=== PATIENT | male | born 1960 | race Caucasian/White ===

== ENCOUNTER 2025-10-29 09:08 | Outpatient (AMB) | payer OTHER, SELFPAY ==
--- OUTSIDE RECORDS SUMMARY | 2024-10-11 06:00 | XMS_ITS ---
Author Organization [facility] Address [address] [place] [address] Care Team Providers Care Bedspread Cutter Name Role Phone DR. JORDY SYED Primary Care Provider REASON FOR VISIT [facility], [facility] - not feeling well , droggy, tired Medications Medication SIG (Take, Route, Frequency, Duration) Notes Start Date End Date Status Metoprolol Succinate 50 MG Capsule ER 24 Hour Sprinkle 1 capsule Orally Once a day; Duration: 30 day(s) Active Metoprolol Succinate 100 MG Capsule ER 24 Hour Sprinkle 1 capsule Orally Once a day Active Doxycycline Monohydrate 100 MG Capsule 1 capsule Orally twice a day; Duration: 10 day(s) 07/03/2024 Active Social History Social History Additional Details Category Social Info Options Details General Occupation: [employer], [employer] (mobile xrays) asbestos exposure: no Past year's travels: [place] alcohol use: yes socially drug use: no Hobbies/Exercise habits: caliste nics daily for 15 min prior to going to work in this [place] Coffee/Tea/Soda: diet soda Occ Marital Status experience no Living with son age 39y in [facility] Pets none smokers in household yes son Drugs no Section Notes: never smoked Encounters Encounter Location Date Provider Diagnosis [facility] [address] [place] [id number] 10/11/2024 JORDY SYED Plan Of Treatment Next Appt Details Provider Name:JORDY RITCHIE, 02/05/2026 07:40:00 AM, [address] [place], [address], Progress Notes * TAY ROLLEOB:1960 (65 yo M)Acc No.[id number]:10/11/2024 Progress note Patient: SAMANTHA TAY Provider: Pam SYED MD :1960 A ge:64 Y S ex:Male Date:10/11/2024 Address:[address] [place], [place] [id number] Subjective: * Chief Complaints: * [facility] [place] - not feeling well , droggy, tired * Medical History: Coronary artery disease without angina pectoris- s/p Cath and stent placed in ? 1998, Dr Mack LBBB Essential hypertension Parkinson's, Dr Stuart Congenital hearing loss Colon10/28/16-Ext hemorrhoids-Rec [id number] BPH with urinary symptoms- PVU Medical History Verified * Surgical History: MIRZA to LAD, Dr Mack, [facility] 1998 knee replacement left 11/2022 Surgical History verified. * Hospitalization/Major Diagno stic Procedure: ED [facility] - dizziness 2010 [facility] Admit - acute UTI, sepsis, COVID-19, new onset A-fib with RVR. 09/30/24 Hospitalization Verified. * Family History: F ather: , family history unknown . M other: 57 yrs, alcoholism. C satinderen: alive, 1 son, 1 daughter, healthy . S iblings: 64 yrs, tripple bypass- bro,- smoker, drinker , lung cancer, diagnosed with Heart Disease, Cancer. S ibling # 1: alive 55 yrs, bro- healthy, healthy . S ibling # 2: alive 59 yrs, sister- healthy, healthy . 2 brother(s) , 1 sister(s) . 1 son(s) , 1 daughter(s) - healthy. . F amily History Verified.. 2 GC\\nno family history of colon cancer or polyps. * Social History: G eneral: D rugs: no. Alcohol Screen D id you have a drink containing alcohol in the past year?: Yes, How often did you have a drink containing alcohol in the past year?: Two to four times a month (2 points), How many drinks did you have on a tpical day when you were drinking in the past year?: 1 or 2 (0 points), How often did you have six or more drinks on one occassion in the past year?: Never (0 points), Points: 2, Interpretation: Negative. S mokers in household: yes, son. Alcohol use: yes, socially. Drug use: no. Coffee/Tea/Soda: diet soda Occ. Marital Status: . Living with: , son age 39y in [place]. 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 Asbestos exposure: no. experience: no. Past year's travels: [place]. Hobbies/Exercise habits: calistenics daily for 15 min prior to going to work in this [place]. Pets: none. Social History Verified. n ever smoked. * Medications: T akingMetoprolol Succinate 50 MG Capsule ER 24 Hour Sprinkle 1 capsule Orally Once a day Metoprolol Succinate 100 MG Capsule ER 24 Hour Sprinkle 1 capsule Orally Once a day Doxycycline Monohydrate 100 MG Capsule 1 capsule Orally twice a day Medication List reviewed and reconciled with the patientTaking Metoprolol Succinate 50 MG Capsule ER 24 Hour Sprinkle 1 capsule Orally Once a day Taking Metoprolol Succinate 100 MG Capsule ER 24 Hour Sprinkle 1 capsule Orally Once a day Taking Doxycycline Monohydrate 100 MG Capsule 1 capsule Orally twice a day Medication List reviewed and reconciled with the patient * Allergies: y esAllergies Verified. * Electronic signature of DR. JORDY SYED M.D. on 10/29/2025 at 09:12 AM EST Sign off status: Pending * Provider: Pam SYED MD Date: 12/12/2023 Generated for Mara titus/Luis Carlos/Lio on: 12/30/2024 09:12 AM EST
--- OUTSIDE RECORDS SUMMARY | 2025-10-29 09:13 | XMS_ITS | Patient Health Record ---
Author Organization [facility] Address [address] [place] [address] Care Team Providers Care Commercial Pilot Name Role Phone DR. JORDY SYED Primary Care Provider [place], NURSING Unavailable [phone] Allergies No Known Allergies Reason For Referral Reason (07/16/25 Wtg appt) a 65 yr old male with enlarging right inguinal hernia with discomfort despite supprt belt please see Referral Organization [facility] Referring Provider First Name JORDY Referring Provider Last Name KUNAL Referring Provider Speciality Internal M edicine Referred Provider SAMANTHA BOBBY Referred Provider Specialty Surgery General Notes Samantha Bobby MD, Surgeon in [place], [place], Address: [address] [place] [address] [address] [address], , fax at [phone], [phone] Clinical Notes Latrice DENNIS MA 0 07/16/2025 11:09:13 AM > Faxed referral and notes Referral Priority Urgent Medications Medication SIG (Take, Route, Frequency, Duration) Notes Start Date End Date Status Finasteride 5 MG Tablet 1 tablet Orally Once a day; Duration: 30 day(s) Active Apixaban 5 MG Tablet 1 tablet Orally twice a day Active Lisinopril 5 MG Tablet 2 tablets Orally Once a day; Duration: 30 day(s) Active Metoprolol Succinate 50 MG Capsule ER 24 Hour Sprinkle 1 capsule Orally Once a day; Duration: 30 day(s) Active Aspirin Adult Low Dose 81 MG Tablet Delayed Release 1 tablet Orally Once a day; Duration: 30 day(s) Active Docusate Sodium 100 MG Capsule 1 capsule as needed Orally Once a day; Duration: 30 day(s) Active Carbidopa-Levodopa 25-100 MG Tablet 2 tablets Orally 5 times a day Active Amitriptyline HCl 25 MG Tablet 1 tablet at bedtime Orally Once a day; Duration: 30 day(s) Active Tamsulosin HCl 0.4 MG Capsule 1 capsule Orally Once a day; Duration: 30 day(s) Active Selegiline HCl 5 MG Tablet 1 tablet with breakfast and lunch Orally Twice a day; Duration: 30 day(s) Active Dulcolax 5 MG Tablet Delayed Release 2 tabs Orally Once a day as needed for constipation [facility] prescribed 10/17/2024 Active Metoprolol Succinate 100 MG Capsule ER 24 Hour Sprinkle 1 capsule Orally Once a day Active Ezetimibe-Simvastatin 10-40 MG Tablet TAKE 1 TABLET BY MOUTH ONCE DAILY; Duration: 90 Active Immunizations Vaccine Route Administration Date Status Comme nts Influenza, Fluzone Quad IM Intramuscular 07/23/2021 Administered Influenza, Fluzone Quad IM Intramuscular 07/25/2022 Administered Influenza, Fluzone QUAD, 3+ yrs, IM Intramuscular 08/28/2017 Administered Influenza, Fluzone QUAD, 3+ yrs, IM Intramuscular 09/06/2018 Administered Influenza, Fluzone QUAD, 3+ yrs, Unknown 09/09/2019 Administered Influenza, Fluzone Quad.5 ml, IM Intramuscular 09/06/2016 Administered Pfizer COVID-19,mRNA, LNP-S, PF, 30mcg/0.3mL dose IM Intramuscular 12/14/2020 Administered 2nd shot Dec 14, [facility] Pneumococcal, PPV 23 IM Intramuscular 09/06/2016 Administered PPD, TB Intradermal Test IM Intramuscular 12/08/2020 Pending PPD, TB Intradermal Test ID Intradermal 01/13/2021 Administered PPD, TB Intradermal Test ID Intradermal 01/17/2022 Administered PPD, TB Intradermal Test TD Transdermal 01/27/2023 Administered PPD, TB Intradermal Test ID Intradermal 01/31/2024 Administered PPD, TB Intradermal Test ID Intradermal 02/04/2025 Administered Tdap (Adacel) IM Intramuscular 11/15/2017 Administered Social History Tobacco Use: Social History Observation Description Date Details (start date - stop date) Never Smoker NA - NA Social History Drug/Alcohol: Social Info Question Answer Notes Alcohol Screen Did you have a drink containing alcohol in the past year? Yes How often did you have a drink containing alcohol in the past year? Two to four times a month (2 points) How many drinks did you have on a tpical day when you were drinking in the past year? 3 or 4 (1 point) How often did you have six or more drinks on one occassion in the past year? 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 Coffee/Tea/Soda: yes diet soda Occ Marital Status experience no Living with son age 39y in [facility] Pet none smokers in household yes son Drugs no Section Notes: never smoked never smoked never smoked never smoked never smoked never smoked never smoked never smoked never smoked never smoked never smoked never smoked never smoked Problems Problem Type SNOMED Code ICD Code Onset Dates Problem Status W/U Status Risk Notes Problem Paroxysmal atrial fibrillation (242248850) Paroxysmal atrial fibrillation (I48.0) Active confirmed Problem Primary insomnia (3313319) Primary insomnia (F51.01) Active confirmed Problem Chronic pain (12146565) Other chronic pain (G89.29) Active confirmed Problem Erectile dysfunction (disorder) (133869747) Erectile dysfunction due to diseases classified elsewhere (N52.1) Active confirmed Problem Atherosclerotic hear t disease of [place] coronary artery without angina pectoris (591598845956078) Coronary artery disease involving [place] coronary artery of [place] heart without angina pectoris (I25.10) Active confirmed Problem Parkinson disease (06052538) Parkinson disease (G20) Active confirmed Problem Osteoarthritis of knee (775671026) Primary osteoarthritis of right knee (M17.11) Active confirmed Problem Constipation by delayed colonic transit (08569019) Constipation by delayed colonic transit (K59.01) Active confirmed Problem Atrial fibrillation (52101613) Atrial fibrillation with RVR (I48.91) Active confirmed Problem Pure hypercholesterolemia (840898312) Pure hypercholesterolemia (E78.00) Active confirmed Problem Osteoarthritis of knee (794974234) Other secondary osteoarthritis of both knees (M17.4) Active confirmed Problem Hearing loss (63891486) Bilateral hearing loss, unspecified hearing loss type (H91.93) Active confirmed Problem Dyslipidemia (065010876) Dyslipidemia (E78.5) Active confirmed Problem Arthritis of knee (180626630) Arthritis of knee (M17.10) Active confirmed Problem Sensorineural hearin g loss (87252725) Congenital hearing loss of both ears (H90.5) Active confirmed Problem Essential hypertension (85177304) Well-controlled hypertension (I10) Active confirmed Problem Benign prostatic hyperplasia (673839482) Prostate hypertrophy (N40.0) Active confirmed Problem Parkinson's disease (disorder) (40550639) Parkinson's disease, unspecified whether dyskinesia present, unspecified whether manifestations fluctuate (G20.A1) Active confirmed Vital Signs Blood pressure diastolic 82 mm Hg 02/04/2025 Height 72 in 02/04/2025 Blood pressure systolic 110 mm Hg 02/04/2025 Weight 180.6 lbs 02/04/2025 BMI 24.49 kg/m2 02/04/2025 Encounters Encounter Location Date Provider Diagnosis [place] [id number] 02/04/2025 N[facility] [place] Encounter for PPD test Z11.1 [place] [id number] 02/04/2025 JORDY SYED Annual physical exam Z00.00 ; Coronary artery disease involving [place] coronary artery of [place] heart without angina pectoris I25.10 ; Parkinson disease G20 ; Congenital hearing loss of both ears H90.5 ; Well-controlled hypertension I10 ; Non-recurrent unilateral inguinal hernia without obstruction or gangrene K40.90 ; Paroxysmal atrial fibrillation I48.0 ; Prostate cancer screening Z12.5 ; Screening for deficiency anemia Z13.0 and Prostate hypertrophy N40.0 [place] [id number] 07/15/2025 JORDY SYED Right inguinal herni a K40.[address] [address] 04/08/2025 JORDY SYED [address] [address] 04/03/2025 JORDY SYED [facility] [address] [place] [address] 02/06/2025 JORDY SYED Assessments Encounter Date Diagnosis (ICD Code) Assessment Notes Treatment Notes Treatment Clinical Notes Section Notes 02/04/2025 Annual physical exam (ICD-10 - Z00.00) 02/04/2025 Coronary artery disease involving [place] coronary artery of [place] heart without angina pectoris (ICD-10 - I25.10) stable on current cv regimen 07/15/2025 Right inguinal hernia (ICD-10 - K40.90) 02/04/2025 Encounter for PPD test (ICD-10 - Z11.1) 02/04/2025 Parkinson disease (ICD-10 - G20) stable on carbi dopa levodopa regimen continues neurology vsiits periodic 02/04/2025 Congenital hearing loss of both ears (ICD-10 - H90.5) stable with hearing aides 02/04/2025 Well-controlled hypertension (ICD-10 - I10) stable on tx 02/04/2025 Non-recurrent unilateral inguinal hernia without obstruction or gangrene (ICD-10 - K40.90) stable with his hernia belt 02/04/2025 Paroxysmal atrial fibrillation (ICD-10 - I48.0) stable on current CV regimen and continues periodic visits cardiology 02/04/2025 Prostate cancer screening (ICD-10 - Z12.5) 02/04/2025 Screening for deficiency anemia (ICD-10 - Z13.0) 02/04/2025 Prostate hypertrophy (ICD-10 - N40.0) stable with finasteride and continues periodic visits urology 02/04/2025 Other he needs to do the nurse ppd anne nd then [employer] care form c an be completed Plan Of Treatment Future Test Test Name Order Date URINE CULTURE 09/06/2018 US : BLADDER AND KIDNEYS -SMA/JEANNIE 2017 CBC W/ AUTOMATED DIFF 10/06/2020 COMP. METABOLIC 10/06/2020 TSH WITH REFLEX TO FT4 10/06/2020 CBC W/OUT AUTOMATED DIFF 01/17/2022 LIPID PROFILE 12/07/2022 PSA 12/07/2022 CBC W/OUT AUTOMATED DIFF 12/07/2022 COMP. METABOLIC 12/07/2022 Next Appt Details Provider Name:JORDY MADRID DANNIELLEKIRAN, 02/05/2026 07:40:00 AM, [address] [facility], [place], [address], Insurance Providers Payer Name Payer Address Payer Phone Subscriber Number Group Number Insured Name Patient Relationship to Insured Coverage Start Date Coverage End Date [employer] [address] [place] [phone] [id number] SAMANTHA ROLLE Self - patient is the insured 4 Medical (General) History Medical History History ICD Code Coronary artery disease with out angina pectoris- s/p Cath and stent placed in ? 1998, Dr Mack LBBB Essential hypertension Parkinson's, Dr Sturat congenital hearing loss Colon10/28/16-Ext hemorrhoids-Rec colon1 0yrs-note BPH with urinary symptoms- [facility] afib Surgical History Surgery Date(Month/Year) MIRZA to LAD, Dr Mack, [facility] 1998 knee replacement left 11/2022 Hospitalization History Reason Date(Month/Year) ED [facility] - dizziness 2010 [facility] Admit - acute UTI, sepsis, COVID-19, new onset A-fib with RVR. 09/30/24-10/04/24
--- NOTE | 2025-10-29 09:58 | MHC.OFFVIS ---
Intake Visit Reasons: follow up Allergies No Known Allergies Allergy (Verified 10/29/25 10:00) Medication List - Last Reconciled 10/29/25 by Jacqueline Ma CNP amitriptyline 25 mg PO BEDTIME 90 days apixaban (Eliquis) 5 mg PO BID carbidopa-levodopa 25-100 mg 2 tabs PO Q4H 90 days ezetimibe-simvastatin 10-40 mg 1 tab PO DAILY finasteride 5 mg PO BEDTIME lisinopril 5 mg PO DAILY metoprolol succinate ER 100 mg PO DAILY metoprolol succinate ER 50 mg PO DAILY selegiline HCl 5 mg PO BID 90 days tamsulosin 0.4 mg PO BEDTIME HPI Comments Details: He was doing okay. Had hernia surgery earlier this month. Tremor was about the same, mostly to right hand, worse when nervous or anxious. No functional impairment. No difficulty eating, drinking, or swallowing. Balance was okay, no falls. No difficulty getting up from chair. Occasionally right leg feels right. Sleep was okay with amitriptyline. His told him that he sometimes kicks in his sleep. He worked as a makerist. Knee pain from arthritis. Developed intermittent tremor to right hand and sometimes right leg that occurs mostly at rest in 2014. Posture became somewhat stooped. No gait or balance problems. No bladder control problems. No cognitive decline. [facility] Medical History (Updated 10/29/25 @ 10:00 by Jacqueline Ma CNP) Parkinson disease Insomnia Hypertension CAD (coronary artery disease) Review of Systems Const Denies chills, Denies daytime sleepiness, Reports difficulty sleeping, Denies fatigue, Denies fever(s), Denies frequent falls, Denies headache(s), Denies increased appetite, Denies poor appetite, Denies snoring, Denies weakness, Denies weight gain and Denies weight loss Eyes Denies loss of vision ENT Denies vertigo, Denies dizziness, Denies headache(s) and Denies neck pain Card Denies chest pain at rest, Denies chest pain with activity, Denies syncope, Denies leg edema, Denies palpitations, Denies dyspnea and Denies dyspnea on exertion Resp Denies cough, Denies dyspnea, Denies dyspnea on exertion and Denies snoring GI Denies abdominal pain, Denies constipation, Denies heartburn, Denies diarrhea and Denies nausea Denies urinary frequency, Denies urinary incontinence and Denies urinary urgency Musc Denies abnormal gait, Denies back pain, Denies myalgias, Denies arthralgias, Denies neck pain, Denies numbness and Denies tingling Neuro Denies abnormal gait, Denies vertigo, Denies dizziness, Denies syncope, Denies frequent falls, Denies headache(s), Denies lack of coordination, Denies loss of vision, Denies memory loss, Denies numbness, Denies Other visual disturbances, Denies restless legs, Denies seizure-like activity, Denies tingling, Denies paresthesias, Reports tremor(s) and Denies weakness Psych Denies anxiety, Denies depression, Denies auditory hallucinations, Denies memory loss and Denies visual hallucinations Endo Denies fatigue and Denies palpitations Physical Exam Const Other: General Appearance:? normal, in no acute distress. Heart:? S1, S2 normal, no murmurs. Lungs:? clear anteriorly and posteriorly. Musculoskeletal:? normal. Extremities:? no edema. Psych:? alert, oriented, cognitive function intact, cooperative with exam. Neuro Other: Abnormal Neurological Findings:?Slightly stooped posture with forward neck position, decreased arm swing on right. Intermittent, resting right hand tremor. Very mild right hand cogwheeling rigidity. Slightly decreased facial expressions and reduced blinking frequency.?? Mental Status: alert and oriented X 3. Normal attention, orientation, memory, and affect. Cranial Nerves: Pupils are equal, round, and reactive to light. External ocular muscles are intact. Visual swan are full, no ptosis. Face is symmetrical, no facial weakness or droop. Facial sensations are normal. Tongue protrudes in midline. Palate elevates symmetrically. Shoulder shrugging is normal Motor Examination: Normal muscle tone, bulk and strength. No atrophy or fasciculations. No drift of the extended upper extremities. DTR 2+. Plantars are flexor. Sensory Exam: Normal light touch, temperature, pinprick, vibration, and joint-position sensations. Rhomberg sign is absent. Coordination: No ataxia. No titubation. Gait Exam: As above. Cerebellar Signs: Rugead-cm-jmwm is okay. Extrapyramidal System: As above. Speech: Normal. Assessment & Plan Assessment & Plan (1) Parkinson disease: Code(s): G20.A1 - Parkinson's disease without dyskinesia, without mention of fluctuations Category: Medical Qualifiers: Dyskinesia presence: unspecified whether dyskinesia Fluctuating manifestations: unspecified whether manifestations fluctuate Qualified Code(s): G20.A1 - Parkinson's disease without dyskinesia, without mention of fluctuations Plan: Continue carbidopa-levodopa 25-100mg 2 tablets every 4 hours for total of 5 doses/day. Continue selegiline 5mg 1 tablet twice a day (with breakfast and lunch). Follow up in 6 months or sooner as needed. (2) Insomnia: Code(s): G47.00 - Insomnia, unspecified Category: Medical Qualifiers: Insomnia type: unspecified Qualified Code(s): G47.00 - Insomnia, unspecified Plan: Continue amitriptyline 25mg 1 tablet at bedtime. Coding Level of Care Code Est Pt Level 4 (68011) Diagnoses Parkinson's disease, unspecified whether dyskinesia present, unspecified whether manifestations fluctuate G20.A1 Dyskinesia presence: unspecified whether dyskinesia Fluctuating manifestations: unspecified whether manifestations fluctuate Insomnia, unspecified type G47.00 Insomnia type: unspecified
== END 2025-10-29 10:14 | disposition home or self-care (01) ==
LOC: HO.HSM 09:09
PROVIDERS: Visit Provider Registered Nurse
DX: G20.A1 Parkinson's disease without dyskinesia, without mention of fluctuations (principal); G47.00 Insomnia, unspecified
CPT/HCPCS: 99214